=== PATIENT | male | born 1990 | race Caucasian/White ===

== ENCOUNTER 2017-05-18 13:17 | Emergency (ER) | payer SELFPAY ==
[2017-05-18 13:23] VITALS: BP 129/79; BMI 34.5
[2017-05-18 15:51] LABS: BASOPHILS # (AUTO) 0.1 X10^3/uL (0.0-0.1); BASOPHILS % (AUTO) 0.4 % (0.2-1.0); EOSINOPHILS % (AUTO) 0.4 % (0.9-2.9); HEMATOCRIT 45.4 % (42.0-54.0); HEMOGLOBIN 15.3 g/dL (13.5-18.0); LYMPHOCYTES # (AUTO) 1.4 X10^3/uL (1.3-2.9); LYMPHOCYTES % (AUTO) 12.1 % (21.0-51.0); MEAN CORPUSCULAR HEMOGLOBIN 29.5 pg (27.0-34.0); MEAN CORPUSCULAR HGB CONC 33.7 g/dL (33.0-35.0); MEAN CORPUSCULAR VOLUME 87.5 fL (80.0-100.0); MEAN PLATELET VOLUME 8.8 fL (7.4-11.0); MONOCYTES # (AUTO) 0.4 x10^3/uL (0.3-0.8); MONOCYTES % (AUTO) 3.7 % (0.0-13.0); NEUTROPHILS # (AUTO) 9.6 x10^3/uL (2.2-4.8); NEUTROPHILS % (AUTO) 83.4 % (42.0-75.0); PLATELET COUNT 337 X10^3/uL (150.0-450.0); RED BLOOD COUNT 5.18 X10^6/uL (4.7-6.0); RED CELL DISTRIBUTION WIDTH 14.2 % (11.6-16.5); WHITE BLOOD COUNT 11.5 X10^3/uL (3.6-10.0)
[2017-05-18] MEDS ORDERED: PEPCID 20 MG IV PREMIX* 20 MG/50 ML BAG IV ONE ×2 (15:56→15:58)
[2017-05-18] MEDS ORDERED: NS 1000 ML 1,000 ML IV ONE (15:56)
[2017-05-18 15:58] LABS: ALANINE AMINOTRANSFERASE 38 Units/L (12-78); ALBUMIN 4.4 g/dL (3.4-5.0); ALKALINE PHOSPHATASE 92 Units/L (46-116); AMYLASE 46 Units/L (25-115); ASPARTATE AMINO TRANSFERASE 17 Units/L (15-37); BLOOD UREA NITROGEN 10 mg/dL (7-18); CALCIUM 9.2 mg/dL (8.5-10.1); CARBON DIOXIDE 25.8 mmol/L (21-32); CHLORIDE 106 mmol/L (98-107); CREATININE 0.85 mg/dL (0.70-1.30); LIPASE 117 Units/L (73-393); SODIUM 142 mmol/L (136-145); TOTAL PROTEIN 8.5 g/dL (6.4-8.2); eGFR BLACK RACES > 60 (>60); eGFR NON BLACK RACES > 60 (>60)
[2017-05-18] MEDS ORDERED: NS 1000 ML 1,000 ML ONE (15:58)
--- NOTE | 2017-05-18 17:12 | DR.GENAD ---
HPI - PCP Primary Care Physician: nfd - HPI Comment HPI Comment: GETTING WORSE. NO FEVER. PATIENT IS NOT HOLDING DOWN FLUID. - Complaint/Symptoms Chief Complaint Doctors Comments: ABDOMINAL PAIN WITH NAUSEA TIMES ONE DAY. Chief Complaint:: patient stated for the past 2 days he has been having abd pain and nausea. - Nurses notes reviewed Nurses Notes Review: Yes - Source History Provided: Patient - Mode of Arrival Mode of Arrival: Ambulatory - Timing Onset of Chief Complaint: 05/16/17 Came on: Suddenly - Duration Duration: Constant Duration: Days - Severity Severity: Moderate PMH - PMH Past Medical History: No Past Surgical History: No - Family History History of Family Medical Conditions: Yes Family Medical History: Coronary Artery Disease - Social History Does patient currently use any type of tobacco product: No Have you used tobacco products in the last 12 months: No Type of Tobacco Use: None Does any household member use tobacco: Yes Alcohol Use: Rarely Do you use any recreational Drugs:: No Lives With: Family Lives Where: Home - infectious screening In the last 2 months have you had wt loss of >10#?: NO Have you had fever, night sweats or hemotysis?: No Have you traveled outside the country in the last 6 months?: No Isolation: Standard ROS - Review of Systems Constitutional: Weakness, Fatigue. negative: Chills, Fever, Loss of Appetite Eyes: negative: Eye Pain, Discharge ENTM: negative: Ear Pain, Nose Discharge, Nose Congestion Respiratoy: negative: Productive Cough, Short of Breath, Wheezing, Hemoptysis Cardiovascular: negative: Chest Pain Gastrointestinal/Abdominal: Abdominal Pain, Nausea Genitourinary: negative: Dysuria, Frequency, Hematuria Neurological: Headache, Weakness, Dizziness Musculoskeletal: Muscle Pain Integumentary: Change in Color Hematologic/Lymphatic: No Symptoms Reported Endocrine: No Symptoms Reported All Other Systems: Reviewed and Negative PE - Vital Signs Vitals: Temperature 98.1 F Pulse Rate 89 Respiratory Rate 16 Blood Pressure 129/79 O2 Sat by Pulse Oximetry 100 - General Limitations: No Limitations General Appearance: Alert - Head Head Exam: Normal Inspection - Eyes Eye exam: Normal Appearance - ENT ENT Exam: Normal External Ear Exam External Ear Exam: Normal External Inspection TM/Canal Exam: Bilateral Normal Nose Exam: Normal Nose Exam Mouth Exam: Normal Inspection Throat Exam: Normal Inspection - Neck Neck Exam: Normal Inspection - Chest Chest Inspection: Symmetric Chest Wall Rise - Respiratory Respiratory Exam: Normal Lung Sounds Bilat Respiratory Exam: Bilateral Clear to Auscultation - Cardiovascular Cardiovascular Exam: Regular Rate, Normal Rhythm, Normal Heart Sounds - Abdominal Exam Abdominal Exam: Normal Bowel Sounds, Soft, Tenderness Abdominal Tenderness: Epigastrium, Moderate - Extremities Extremities Exam: Normal Inspection - Back Back Exam: Normal Inspection - Neurologic Neurological Exam: Alert, Oriented X3 - Psychiatric Psychiatric Exam: Normal Affect, Normal Mood - Skin Skin Exam: Normal Color MDM - Additional Information Additional Information Obtained From: Family - Differential Diagnosis Differential Diagnosis: ABDOMINAL PAIN, BOWEL OBSTRUCTION, PUD, DIVERTICULITIS, PANCREATITIS, ALBERTA Course - Treatment Treatment: SEE ORDERS. - Education/Counseling Education/Counseling: Patient, Family, Education Educated On: Diagnosis, Needs for Follow Up ROR - Labs Reviewed Laboratory Results Reviewed?: Yes Result Diagrams: 05/18/17 15:40 05/18/17 15:40 Laboratory: WBC 11.5 X10^3/uL (3.6-10.0) H 05/18/17 15:40 RBC 5.18 X10^6/uL (4.7-6.0) 05/18/17 15:40 Hgb 15.3 g/dL (13.5-18.0) 05/18/17 15:40 Hct 45.4 % (42.0-54.0) 05/18/17 15:40 MCV 87.5 fL (80.0-100.0) 05/18/17 15:40 MCH 29.5 pg (27.0-34.0) 05/18/17 15:40 MCHC 33.7 g/dL (33.0-35.0) 05/18/17 15:40 RDW 14.2 % (11.6-16.5) 05/18/17 15:40 Plt Count 337 X10^3/uL (150.0-450.0) 05/18/17 15:40 MPV 8.8 fL (7.4-11.0) 05/18/17 15:40 Neut % 83.4 % (42.0-75.0) H 05/18/17 15:40 Lymph % 12.1 % (21.0-51.0) L 05/18/17 15:40 [place] % 3.7 % (0.0-13.0) 05/18/17 15:40 Eos % 0.4 % (0.9-2.9) L 05/18/17 15:40 Baso % 0.4 % (0.2-1.0) 05/18/17 15:40 Neut # 9.6 x10^3/uL (2.2-4.8) H 05/18/17 15:40 Lymph # 1.4 X10^3/uL (1.3-2.9) 05/18/17 15:40 [place] # 0.4 x10^3/uL (0.3-0.8) 05/18/17 15:40 Eos # 0.0 x10^3/uL (0.0-0.2) 05/18/17 15:40 Baso # 0.1 X10^3/uL (0.0-0.1) 05/18/17 15:40 Absolute Nucleated RBC 0.0 /100WBC 05/18/17 15:40 Sodium 142 mmol/L (136-145) 05/18/17 15:40 Corrected Sodium TNP 05/18/17 15:40 Potassium 4.2 mmol/L (3.5-5.1) 05/18/17 15:40 Chloride 106 mmol/L (98-107) 05/18/17 15:40 Carbon Dioxide 25.8 mmol/L (21-32) 05/18/17 15:40 BUN 10 mg/dL (7-18) 05/18/17 15:40 Creatinine 0.85 mg/dL (0.70-1.30) 05/18/17 15:40 Est GFR (MDRD) Af Amer > 60 (>60) 05/18/17 15:40 Est GFR (MDRD) Non-Af > 60 (>60) 05/18/17 15:40 Glucose 95 mg/dL (65-99) 05/18/17 15:40 Calcium 9.2 mg/dL (8.5-10.1) 05/18/17 15:40 Corrected Calcium TNP 05/18/17 15:40 Total Bilirubin 0.30 mg/dL (0.2-1.0) 05/18/17 15:40 AST 17 Units/L (15-37) 05/18/17 15:40 ALT 38 Units/L (12-78) 05/18/17 15:40 Alkaline Phosphatase 92 Units/L (46-116) 05/18/17 15:40 Creatine Kinase 100 Units/L (39-308) 05/18/17 15:40 CK-MB (CK-2) < 1.0 ng/mL (0-4.0) 05/18/17 15:40 CK/CKMB % Calc 1.0 % (<4) 05/18/17 15:40 Troponin I < 0.02 ng/mL (0-1.5) 05/18/17 15:40 Total Protein 8.5 g/dL (6.4-8.2) H 05/18/17 15:40 Albumin 4.4 g/dL (3.4-5.0) 05/18/17 15:40 Globulin 4.1 g/dL (2.5-4.5) 05/18/17 15:40 Albumin/Globulin Ratio 1.1 Ratio (1.1-2.1) 05/18/17 15:40 Amylase 46 Units/L (25-115) 05/18/17 15:40 Lipase 117 Units/L (73-393) 05/18/17 15:40 Specimen Type Clean catch urine 05/18/17 17:16 Urine Color Yellow (YELLOW) 05/18/17 17:16 Urine Appearance Clear (CLEAR) 05/18/17 17:16 Urine pH 7.0 (5.0 - 8.0) 05/18/17 17:16 Ur Specific [place] 1.010 (1.000-1.030) 05/18/17 17:16 Urine Protein Negative (NEGATIVE) 05/18/17 17:16 Urine Glucose (UA) Negative (NEGATIVE) 05/18/17 17:16 Urine Ketones 1+ (NEGATIVE) 05/18/17 17:16 Urine Occult Blood Negative (NEGATIVE) 05/18/17 17:16 Urine Nitrite Negative (NEGATIVE) 05/18/17 17:16 Urine Bilirubin Negative (NEGATIVE) 05/18/17 17:16 Urine Urobilinogen Normal (NORMAL) 05/18/17 17:16 Ur Leukocyte Esterase Negative (NEGATIVE) 05/18/17 17:16 Urine RBC None /HPF (NEGATIVE) 05/18/17 17:16 Urine WBC None /HPF (NEGATIVE) 05/18/17 17:16 Ur Squamous Epith Cells Rare /HPF (NEGATIVE) 05/18/17 17:16 Amorphous Sediment Trace /HPF (NEGATIVE) 05/18/17 17:16 Urine Bacteria Negative /HPF (NEGATIVE) 05/18/17 17:16 Ur Culture Indicated? No/not indicated 05/18/17 17:16 H. pylori IgG Antibody Negative (NEGATIVE) 05/18/17 15:40 - EKG Rhythm: NSR (EKG NOTED) - Diagnosis Discharge Problem: Abdominal pain Qualifiers: Abdominal location: epigastric Qualified Code(s): R10.13 - Epigastric pain - Discharge Plan Disposition: 01 HOME, SELF-CARE Condition: Stable Prescriptions: Ketorolac Tromethamine [Toradol Tab] 10 mg PO Q8H PRN #15 tab PRN Reason: Pain Ondansetron [Zofran ODT 8 mg] 8 mg PO Q8H PRN #12 tab PRN Reason: Nausea/Vomiting Ranitidine HCl [ZANTAC TAB 150 MG *] 150 mg PO BID #60 tab - Follow ups/Referrals Follow ups/Referrals: ZAC,None [Primary Care Provider] - 3 days KAYLEY NUNEZ [STAFF PHYSICIAN] - 3 days - Instructions Instructions: Abdominal Pain, Adult, [id number] Additional Instructions: RETURN TO ED IF WORSE.
[2017-05-18 17:48] LABS: BILIRUBIN,URINE NEGATIVE (NEGATIVE); BLOOD/HEMOGLOBIN,URINE NEGATIVE (NEGATIVE); GLUCOSE, URINE NEGATIVE (NEGATIVE); KETONES,URINE 1+ (NEGATIVE); LEUKOCYTE ESTERASE ,URINE NEGATIVE (NEGATIVE); NITRITES,URINE NEGATIVE (NEGATIVE); PROTEIN,URINE NEGATIVE (NEGATIVE); UROBILINOGEN,URINE NORMAL (NORMAL)
[2017-05-18 17:48] LABS: CREATINE KINASE 100 Units/L (39-308); CREATINE KINASE MB < 1.0 ng/mL (0-4.0); TROPONIN I < 0.02 ng/mL (0-1.5)
[2017-05-18 18:00] LABS: APPEARANCE,URINE CLEAR (CLEAR); COLOR,URINE YELLOW (YELLOW)
[2017-05-18 18:01] LABS: AMORPHOUS SEDIMENT,UR TRACE /HPF (NEGATIVE); BACTERIA,URINE NEGATIVE /HPF (NEGATIVE); SQUAMOUS EPITHELIAL CELL,UR RARE /HPF (NEGATIVE)
== END 2017-05-18 18:33 | disposition home or self-care (01) ==
LOC: ER 13:17
DX: R10.13 Epigastric pain (principal)
CPT/HCPCS: 36415; 80053; 81001; 82150; 82550; 82553; 83690; 84484; 85025; 86677; 93005; 93010; 96365; 96374; 99283; 99284; A4222; S0028